=== PATIENT | female | born 1930 | race Caucasian/White ===

== ENCOUNTER → 2016-09-03 | Outpatient (CLI) | payer OTHER ==
[~2016-09-03] MED LIST: 5-HTP100 MG PO; ASPIR 8181 MG PO; ATORVASTATIN CA40 MG PO; B-121000 MC2 PO; BRILINTA90 MG PO; CALCITRIOL0.25 MCG PO; CARVEDILOL12.5 MG PO; CLONIDINE0.1 PO; COREG6.25 MG PO; COROMEGA 3 + D2.5 GM PO; COZAAR 50 MG TA50 M2 PO; FLEXERIL PO; IMDUR 30 MG TAB30 M1 PO; LIORESAL 10 MG10 MG PO; LIPITOR 20 MG T20 M1 PO; MAGNESIUM OXID400 MG PO; NITROGLYCERIN0.4 MG SUBLING; NORVASC10 MG PO; PERCOCET 10-321 EACH PO; PLAVIX 75 MG TA75 M1 PO; PRESERVISION A1 EAC2 PO; PRESERVISION T1 EACH PO; PROTONIX40 M1 PO; TYLENOL325 MG PO; VASOTEC20 MG PO; VITAMIN D1000 UNI1 PO; VITAMIN D32000 UNI1 PO; VITAMINC500 PO
--- NOTE | ~2016-09-03 | 2DMMODE ---
[facility] [address] [place] [address] 2 D/M-MODE ECHOCARDIOGRAM Name: RAFAELA REEVESCHRISTOPHE Stapleton Room #: REG [facility]#: [id number] Admission: 09/03/16 Attend Phys: Logan Callejas MD Discharge: Date of : [birth year] Date of Service: 09/03/16 1006 Report #: [id number] THIS REPORT FOR: //name// APPROVED REPORT Study performed: 09/03/2016 09:11:10 EXAM: Comprehensive 2D, Doppler, and color-flow Echocardiogram Patient Location: Out-Patient Room #: Echo lab Status: routine Other Information Study Quality: Good Indications Pacemaker CAD Hypertension/HDD 2D Dimensions RVDd: 35.95 mm LVEF(%): 62.90 (>50%) IVSd: 9.44 (7-11mm) LVOT Diam: 19.26 (18-24mm) LVDd: 44.11 mm PWd: 8.62 (7-11mm) Ascending Ao: 26.58 (22-36mm) LVDs: 29.19 (25-40mm) Aortic Root: 26.12 mm IVC: 14.00 mm Prajapati's LVEF: 62.90 % Volumes Left Atrial Volume (Systole) Single Plane 4CH: 60.57 mL Single Plane 2CH: 23.28 mL LA ESV Index: 23.00 mL/m2 Aortic Valve AoV Peak Jean Pierre.: 1.37 m/s AO Peak Gr.: 7.52 mmHg LVOT Max P.90 mmHg LVOT Max V: 0.85 m/s WU Vmax: 1.81 cm2 Mitral Valve E/A Ratio: 0.8 MV Decel. Time: 192.29 ms MV E Max Jean Pierre.: 0.85 m/s MV A Jean Pierre.: 1.05 m/s [facility] [place] [address] 2 D/M-MODE ECHOCARDIOGRAM Name: VINOD REEVES Room #: [facility].#: [id number] Admission: 09/03/16 Attend Phys: Logan Callejas MD Discharge: Date of : [birth year] Date of Service: 09/03/16 1006 Report #: [id number] PHT: 55.76 ms IVRT: 124.57 ms Pulmonary Valve PV Peak Jean Pierre.: 1.01 m/s PV Peak Gr.: 4.10 mmHg Pulmonary Vein P Vein S: 0.55 m/s P Vein A: 0.27 m/s P Vein D: 0.31 m/s P Vein A Dur.: 120.0 msec P Vein S/D Ratio: 1.77 Tricuspid Valve TR Peak Jean Pierre.: 2.95 m/s RAP Estimate: 5.00 mmHg TR Peak Gr.: 34.77 mmHg PA Pressure: 40.00 mmHg Left Ventricle The left ventricle is normal size. There is normal LV segmental wall motion. There is normal left ventricular wall thickness. The left ventricular systolic function is normal. The left ventricular ejection fraction is within the normal range. LVEF is 60-65%. Grade I - abnormal relaxation pattern. Right Ventricle The right ventricle is normal size. The right ventricular systolic function is normal. Pacemaker lead is present in the right ventricle. Atria The left atrium size is normal. The right atrium size is normal. Pacemaker lead is present in the right atrium. Aortic Valve The aortic valve is normal in structure. No aortic regurgitation is present. There is no aortic valvular stenosis. Mitral Valve The mitral valve is normal in structure. Mild mitral regurgitation. No evidence of mitral valve stenosis. Tricuspid Valve The tricuspid valve is normal in structure. There is trace tricuspid regurgitation. The right atrial pressure is estimated at 5 mmHg. There is mild pulmonary hypertension. Pulmonic Valve The pulmonary valve is normal in structure. Trace pulmonic [facility] [address] [place] [address] 2 D/M-MODE ECHOCARDIOGRAM Name: VINOD REEVES Room #: REG [facility]#: [id number] Admission: 09/03/16 Attend Phys: Logan Callejas MD Discharge: Date of : [birth year] Date of Service: 09/03/16 1006 Report #: [id number] regurgitation. Great Vessels The aortic root is normal in size. IVC is normal in size and collapses >50% with inspiration. Pericardium There is no pericardial effusion. <Conclusion> The left ventricle is normal size. The left ventricular systolic function is normal. Grade I - abnormal relaxation pattern. The right ventricle is normal size. The left atrium size is normal. The right atrium size is normal. Pacemaker lead is present in the right atrium. Pacemaker lead is present in the right ventricle. The aortic valve is normal in structure. Mild mitral regurgitation. There is trace tricuspid regurgitation. The right atrial pressure is estimated at 5 mmHg. There is mild pulmonary hypertension. <ELECTRONICALLY SIGNED> By: Logan Callejas MD 09/03/16 1006 1006 1006 Logan Callejas MD /INF
== END ==
LOC: CV 08:56
DX: I25.10 Atherosclerotic heart disease of native coronary artery without angina pectoris (principal); I10 Essential (primary) hypertension